=== PATIENT | female | born 1940 | race Caucasian/White ===

== ENCOUNTER 2021-01-28 15:18 | Inpatient (IN) | payer MEDICARE ==
[~2021-01-28] VITALS: Ht 162.6 cm; Wt 38.6 kg
[2021-01-28] MEDS ORDERED: ONDANSETRON 4 MG/2 ML VIAL IV ONE (15:45)
[2021-01-28] MEDS ORDERED: IV NORMAL SALINE 500 ML IV ONE ×2 (15:45→20:15)
[2021-01-28] MEDS ORDERED: ONDANSETRON 4 MG/2 ML VIAL ONE (15:50)
--- NOTE | 2021-01-28 16:10 | NUR ---
PT IS IN ROOM #2A. DR BORJA EVALUATED THE PT.
[2021-01-28 16:11] LABS: HEMATOCRIT 44.4 % (31.2-41.9); MEAN CORPUSCULAR HEMOGLOBIN 31.9 uug (24.7-32.8); MEAN CORPUSCULAR VOLUME 94.7 fL (75.5-95.3); PLATELET COUNT (AUTO) 396 K/uL (179-408)
[2021-01-28 16:13] LABS: CREATININE 0.8 mg/dL (0.6-1.3); POTASSIUM 3.4 mmol/L (3.5-5.1)
[2021-01-28 16:19] LABS: ETHANOL < 3 MG/DL (0-0)
[2021-01-28 16:26] LABS: BILIRUBIN,TOTAL 0.8 mg/dL (0.2-1.0); TOTAL PROTEIN, SERUM 7.4 g/dL (6.4-8.2)
[2021-01-28] MEDS ORDERED: LORAZEPAM 2 MG/1 ML VIAL IV ONE (16:30)
[2021-01-28] MEDS ORDERED: HYDROMORPHONE 1 MG/1 ML DISP.SYRIN ONE (16:35)
[2021-01-28] MEDS ORDERED: SERT25TA PO (16:36)
[2021-01-28] MEDS ORDERED: LOSA50TA39 PO (16:36)
[2021-01-28] MEDS ORDERED: IBUP-1953 PO (16:36)
[2021-01-28 16:37] LABS: LIPASE 48 U/L (73-393); MAGNESIUM 2.5 mg/dL (1.8-2.4)
[2021-01-28] MEDS ORDERED: LORAZEPAM 2 MG/1 ML VIAL ONE (16:38)
[2021-01-28 16:52] LABS: THYROID STIMULATING HORMONE 0.519 mIU/mL (0.358-3.740)
[2021-01-28] MEDS ORDERED: IV NORMAL SALINE 1000 ML BAG IV ONE (17:15)
[2021-01-28] MEDS ORDERED: SWABABLE VALVE TRANSFER SET EA MC ONE (17:32)
[2021-01-28] MEDS ORDERED: IV NORMAL SALINE 250 ML IV ONE (17:32)
[2021-01-28] MEDS ORDERED: IOHEXOL 350 100 ML INFUS..BTL ONE (17:32)
[2021-01-28] MEDS ORDERED: AZITHROMYCIN IV 500 MG in IV DEXTROSE 5% 250 ML IV ONE (19:15)
[2021-01-28] MEDS ORDERED: CEFTRIAXONE 1 G in IV DEXTROSE 5% 50 ML IV ONE (19:15)
[2021-01-28] MEDS ORDERED: AZITHROMYCIN 500MG/ D5W 250ML IVPB **ER PYXIS ONLY IV ONE (19:34)
[2021-01-28] MEDS ORDERED: CEFTRIAXONE /D5W 50ML IVPB **ER PYXIS IV ONE (19:34)
[2021-01-28] MEDS ORDERED: ONDANSETRON 4 MG/2 ML VIAL IV PRN (20:45)
[2021-01-28] MEDS ORDERED: AZITHROMYCIN IV 500 MG in IV DEXTROSE 5% 250 ML IV SCH (20:45)
[2021-01-28] MEDS ORDERED: ACETAMINOPHEN 325 MG TABLET PO PRN (20:45)
[2021-01-28] MEDS ORDERED: MAGNESIUM HYDROXIDE 30 ML LIQUID UDC PO PRN (20:45)
[2021-01-28] MEDS ORDERED: CEFTRIAXONE 1 G in IV DEXTROSE 5% 50 ML IV SCH (20:45)
[2021-01-28] MEDS ORDERED: Z GUARD REMEDY PASTE 57 GM TUBE TOP PRN (20:45)
--- NOTE | 2021-01-28 20:46 | NUR ---
DR ZENDEJAS TALKED TO DR MCINTYRE ABOUT PT's ADMISSION . PT IS GOING TO BE ADMITTED TO TLEMETRY FLOOR. NO BEDS AVAILABLE ON TELEMETRY FLOOR ACCORDING TO NURSING CHIEF OF SAFETY AND PROTECTION.
[2021-01-28] MEDS: ENOXAPARIN SODIUM 40 MG/0.4 ML DISP.SYRIN SQ SCH (20:56)
--- NOTE | 2021-01-28 23:39 | NUR ---
REPORT GIVEN TO ACCOUNT PROCESSOR EDVIN VILLAGOMEZ.
[2021-01-29 06:13] LABS: HEMATOCRIT 42.8 % (31.2-41.9); MEAN CORPUSCULAR HEMOGLOBIN 31.9 uug (24.7-32.8); MEAN CORPUSCULAR VOLUME 95.7 fL (75.5-95.3); PLATELET COUNT (AUTO) 343 K/uL (179-408)
[2021-01-29 06:39] LABS: CREATININE 0.7 mg/dL (0.6-1.3); MAGNESIUM 2.4 mg/dL (1.8-2.4); PHOSPHOROUS 3.7 mg/dL (2.5-4.9); POTASSIUM 4.3 mmol/L (3.5-5.1)
[2021-01-29] MEDS: PANTOPRAZOLE SODIUM 40 MG TABLET.DR PO SCH (07:01)
[2021-01-29] MEDS ORDERED: PANTOPRAZOLE SODIUM 40 MG TABLET.DR PO ONE (07:07)
[2021-01-29] MEDS ORDERED: CEFTRIAXONE /D5W 50ML IVPB **ER PYXIS IV ONE (08:14)
[2021-01-29] MEDS ORDERED: AZITHROMYCIN 500MG/ D5W 250ML IVPB **ER PYXIS ONLY IV ONE (08:55)
[2021-01-29] MEDS: AZITHROMYCIN IV 500 MG in IV DEXTROSE 5% 250 ML IV SCH (08:56)
[2021-01-29] MEDS: ENOXAPARIN SODIUM 40 MG/0.4 ML DISP.SYRIN SQ SCH (09:10)
[2021-01-29] MEDS ORDERED: ENOXAPARIN SODIUM 40 MG/0.4 ML DISP.SYRIN SQ ONE (09:15)
[2021-01-29 10:15] LABS: THYROID STIMULATING HORMONE 1.009 mIU/mL (0.358-3.740)
--- NOTE | 2021-01-29 11:02 | NUR ---
Spoke to Dr Arnold for Inpatient care.
[2021-01-29] MEDS: IV 1/2NS 1000 ML 1,000 ML IV PRN ×2 (11:55→20:05)
--- NOTE | 2021-01-29 15:37 | NUR ---
Pt resting in bed, watching TV, NAD noted.
[2021-01-29] MEDS: LORAZEPAM 2 MG/1 ML VIAL IV PRN (16:03)
--- NOTE | 2021-01-29 16:03 | NUR ---
Pt c/o anxiety, Ativan per PRN order slow IVP given.
[2021-01-29] MEDS ORDERED: LORAZEPAM 2 MG/1 ML VIAL ONE (16:05)
--- NOTE | 2021-01-29 16:46 | NUR ---
Patient is resting comfortably in bed with eyes closed, NAD noted. Continue w/ close monitoring.
[2021-01-29] MEDS: CEFTRIAXONE 1 G in IV DEXTROSE 5% 50 ML IV SCH (20:06)
[2021-01-29 20:49] VITALS: BP 105/67
[2021-01-30 04:00] VITALS: BP 122/64
--- NOTE | 2021-01-30 05:06 | NUR ---
Pt slept throughout the night. Titrated to 1.5 L. Denies SOB or chest pain. IV site intact and running ordered fluids. Safery and comfort provided. No other issues or concerns at this time, will endorse to day shift.
[2021-01-30] MEDS: PANTOPRAZOLE SODIUM 40 MG TABLET.DR PO SCH (06:17)
[2021-01-30 06:28] LABS: HEMATOCRIT 38.2 % (31.2-41.9); MEAN CORPUSCULAR HEMOGLOBIN 31.3 uug (24.7-32.8); MEAN CORPUSCULAR VOLUME 95.2 fL (75.5-95.3); PLATELET COUNT (AUTO) 309 K/uL (179-408)
[2021-01-30 07:03] LABS: CARBON DIOXIDE 27 mmol/L (21-32); CHLORIDE 104 mmol/L (98-107); CREATININE 0.5 mg/dL (0.6-1.3); GLUCOSE 80 mg/dL (74-106); PHOSPHOROUS 2.8 mg/dL (2.5-4.9); POTASSIUM 3.7 mmol/L (3.5-5.1); UREA NITROGEN, BLOOD 14 mg/dL (7-18)
--- NOTE | 2021-01-30 08:00 | NUR ---
PT IN BED SLEEPING, AROUSABLE TO NAME. PT HAS STAGE II PRESSURE ULCER ON COCCYX. PT ON TEL MONITOR NSR, NO SIGNS OF DISTRESS, NO REPORTS OF PAIN AT THIS TIME. PT ON 1.5L O2 VIA NC SATURATING AT 95%. PT PENDING SWALLOW EVAL FOR THIS AFTERNOON. IV ACCESS ON THE LEFT FA 20G INFUSING 1/2 NS AT 75CC. WILL CONTINUE WITH PLAN OF CARE.
[2021-01-30] MEDS: ENOXAPARIN SODIUM 40 MG/0.4 ML DISP.SYRIN SQ SCH (09:44)
[2021-01-30] MEDS: IV 1/2NS 1000 ML 1,000 ML IV PRN (09:46)
[2021-01-30] MEDS: AZITHROMYCIN IV 500 MG in IV DEXTROSE 5% 250 ML IV SCH (10:05)
--- NOTE | 2021-01-30 11:30 | NUR ---
PT WAS SOB ON 2L SATURATING AT 86%, O2 INCREASED TO 4.0L AND PT WAS SATURATING AT 89/90%. PT WAS STILL HAVING TROUBLE TALKING WITHOUT BEING SHORT OF BREATH. HOSPITALIST NOTIFIED, ORDERS GIVEN AND FULFILLED. Addendum: 01/30/21 at 1201 by ASHLEY KATZ RN WRONG PT PLEASE DISREGARD
[2021-01-30 12:00] VITALS: BP 114/47
--- NOTE | 2021-01-30 12:00 | NUR ---
CONSENT RECEIVED TO PROCEED WITH DIALYSIS CATHETER PLACEMENT AT BEDSIDE Addendum: 01/30/21 at 1202 by ASHLEY KATZ RN WRONG PT PLEASE DISREGARD
[2021-01-30 15:56] VITALS: BP 132/64
--- NOTE | 2021-01-30 19:30 | NUR ---
RECEIVED PT AWAKE,ALERT AND ORIENTEDX1. PT IN NO ACUTE RESPIRATORY DISTRESS. PT CONFUSED, SCREAMING AND RESTLESS. IV INTACT. PT ON 1.5L NASAL CANNULA. SAFETY AND COMFORT PROVIDED. WILL CONTINUE TO MONITOR.
[2021-01-30] MEDS: CEFTRIAXONE 1 G in IV DEXTROSE 5% 50 ML IV SCH (19:52)
[2021-01-30] MEDS: LORAZEPAM 2 MG/1 ML VIAL IV PRN (19:52)
[2021-01-30 20:00] VITALS: BP 159/76
[2021-01-31 00:30] VITALS: BP 148/85
[2021-01-31] MEDS: LORAZEPAM 2 MG/1 ML VIAL IV PRN (02:35)
[2021-01-31] MEDS: IV 1/2NS 1000 ML 1,000 ML IV PRN ×2 (02:42→20:11)
[2021-01-31 04:00] VITALS: BP 119/57
--- NOTE | 2021-01-31 05:09 | NUR ---
PT SLEPT INTERMITTENTLY. PT IN NO ACUTE DISTRESS. IV INTACT. PT GIVEN ATIVAN PRN AT 1952H AND 0235H FOR RESTLESSNESS AND AGITATION. PRESCRIBED MEDICATION GIVEN AND PT TOLERATED IT WELL. SAFETY AND COMFORT PROVIDED. WILL ENDORSE TO INCOMING DORINAE FOR CONTINUITY OF CARE.
[2021-01-31] MEDS: PANTOPRAZOLE SODIUM 40 MG TABLET.DR PO SCH (06:03)
[2021-01-31 06:36] LABS: HEMATOCRIT 41.2 % (31.2-41.9); MEAN CORPUSCULAR HEMOGLOBIN 31.2 uug (24.7-32.8); MEAN CORPUSCULAR VOLUME 94.1 fL (75.5-95.3); PLATELET COUNT (AUTO) 404 K/uL (179-408)
[2021-01-31 06:47] LABS: CARBON DIOXIDE 28 mmol/L (21-32); CHLORIDE 104 mmol/L (98-107); CREATININE 0.5 mg/dL (0.6-1.3); GLUCOSE 96 mg/dL (74-106); MAGNESIUM 1.8 mg/dL (1.8-2.4); PHOSPHOROUS 2.4 mg/dL (2.5-4.9); POTASSIUM 3.4 mmol/L (3.5-5.1); UREA NITROGEN, BLOOD 4 mg/dL (7-18)
--- NOTE | 2021-01-31 08:00 | NUR ---
received change of shift report. pt a/ox2, pt has stage 2 wound on the coccyx, pt on tele monitor nsr. pt on 1.5L O2 via NC. IV access on the right FA 22g 1/2 NS at 75. bed low and locked call light within reach. HOB elevated, pt on aspiration precautions, will continue to monitor.
[2021-01-31] MEDS: ENOXAPARIN SODIUM 40 MG/0.4 ML DISP.SYRIN SQ SCH (09:00)
[2021-01-31] MEDS: AZITHROMYCIN IV 500 MG in IV DEXTROSE 5% 250 ML IV SCH (09:27)
[2021-01-31] MEDS ORDERED: POTASSIUM CHLORIDE 20 MEQ TAB.PRT.SR PO ONE (10:00)
--- NOTE | 2021-01-31 10:00 | NUR ---
PT LIVES AT HOME WITH 24/7 CAREGIVERS. PT HAS STAGE 2 DECUB ON THE SACRUM AND POSSIBLE ASPIRATION PNA. SS CONSULT ORDERED AND MADE AWARE.
[2021-01-31] MEDS ORDERED: PHENOL/SODIUM PHENOLATE SPRAY 177 ML BOTTLE MM PRN (11:15)
[2021-01-31 12:00] VITALS: BP 145/66
[2021-01-31] MEDS ORDERED: Medication Not On Formulary EA (Sertraline Hcl (Zoloft) 1 TAB) PO SCH (13:15)
[2021-01-31] MEDS: LOSARTAN POTASSIUM 50 MG TABLET PO SCH (14:18)
[2021-01-31] MEDS ORDERED: NEUTRA PHOS PACKET PO ONE (15:30)
[2021-01-31 16:00] VITALS: BP 143/78
[2021-01-31] MEDS ORDERED: IBUPROFEN 400 MG TABLET PO SCH (17:00)
[2021-01-31] MEDS: IBUPROFEN 600 MG TABLET PO SCH (18:27)
[2021-01-31] MEDS: THERAHONEY GEL 1.5 OZ TUBE TOP SCH (18:28)
--- NOTE | 2021-01-31 19:06 | NUR ---
procedure consent obtained from caregiver, Rafaela
--- NOTE | 2021-01-31 19:30 | NUR ---
Received pt in bed, asleep but easily arousable. No signs of acute distress noted. NSR on tele. On oxygen at 1.5L via NC. IVF infusing well. Safety measures initiated, call light within reach.
[2021-01-31 20:00] VITALS: BP 153/71
[2021-01-31] MEDS: CEFTRIAXONE 1 G in IV DEXTROSE 5% 50 ML IV SCH (20:11)
[2021-01-31 21:00] VITALS: BP 109/57
[2021-02-01] VITALS: BP 117/62
[2021-02-01 04:00] VITALS: BP 135/67
--- NOTE | 2021-02-01 06:00 | NUR ---
No signs of acute distress noted through the night. Tolerated due medications well. Oral care done q2h. Frequent repositioning done for comfort. IVF infusing well. Safety measures maintained at all times. All needs attended to and met.
[2021-02-01] MEDS: PANTOPRAZOLE SODIUM 40 MG TABLET.DR PO SCH (06:17)
[2021-02-01 07:09] LABS: HEMATOCRIT 39.7 % (31.2-41.9); MEAN CORPUSCULAR HEMOGLOBIN 32.3 uug (24.7-32.8); PLATELET COUNT (AUTO) 383 K/uL (179-408)
[2021-02-01 08:25] VITALS: BP 108/54
[2021-02-01 08:29] LABS: CREATININE 0.7 mg/dL (0.6-1.3); MAGNESIUM 1.9 mg/dL (1.8-2.4); PHOSPHOROUS 3.5 mg/dL (2.5-4.9); POTASSIUM 3.4 mmol/L (3.5-5.1)
[2021-02-01] MEDS ORDERED: AZITHROMYCIN 250 MG TABLET PO SCH (09:00)
[2021-02-01] MEDS ORDERED: POTASSIUM CHLORIDE 20 MEQ TAB.PRT.SR PO ONE (09:30)
[2021-02-01] MEDS: SERTRALINE HCL 50 MG TABLET PO SCH (09:39)
[2021-02-01] MEDS: THERAHONEY GEL 1.5 OZ TUBE TOP SCH (09:39)
[2021-02-01] MEDS: IBUPROFEN 600 MG TABLET PO SCH ×2 (09:40→13:38)
[2021-02-01] MEDS: LOSARTAN POTASSIUM 50 MG TABLET PO SCH (09:40)
[2021-02-01] MEDS: ENOXAPARIN SODIUM 40 MG/0.4 ML DISP.SYRIN SQ SCH (09:41)
[2021-02-01 11:18] VITALS: BP 152/72
[2021-02-01 15:50] VITALS: BP 160/77
[2021-02-01] MEDS: CEFTRIAXONE 1 G in IV DEXTROSE 5% 50 ML IV SCH (20:23)
[2021-02-01 20:27] VITALS: BP 127/67
--- NOTE | 2021-02-01 22:15 | NUR ---
Patient resting in bed comfortably.No s/s of distress noted.HOB elevated.IV on right FA patent and intact with IVF infusing well. Administered IV ATB as ordered . no a/r noted. Patient seen and examined by with new order noted and carried out. Continue safety measures and aspiration precaution. Call light with in reach. Will continue to monitor.
[2021-02-02 00:08] VITALS: BP_SYST 160; BP_SYST 178; BP_DIAS 75; BP_DIAS 80
[2021-02-02] MEDS: IV 1/2NS 1000 ML 1,000 ML IV PRN ×2 (00:49→16:10)
[2021-02-02 04:37] VITALS: BP 127/79
[2021-02-02 06:25] LABS: MEAN CORPUSCULAR HEMOGLOBIN 31.5 uug (24.7-32.8); MEAN CORPUSCULAR VOLUME 94.9 fL (75.5-95.3); PLATELET COUNT (AUTO) 419 K/uL (179-408)
[2021-02-02] MEDS: PANTOPRAZOLE SODIUM 40 MG TABLET.DR PO SCH (06:25)
[2021-02-02 07:27] LABS: CREATININE 0.6 mg/dL (0.6-1.3); MAGNESIUM 1.7 mg/dL (1.8-2.4); PHOSPHOROUS 3.8 mg/dL (2.5-4.9); POTASSIUM 3.2 mmol/L (3.5-5.1)
--- NOTE | 2021-02-02 07:30 | NUR ---
Received resting in bed awake and alert. No respiratory distress noted. On 1 lpm nc spo2 95%. Complained of shoulder and back soreness. Patient is repositioned comfortably. Iv intact and hydration ongoing. Kept comfortable. Call light within reach. Will continue to monitor.
[2021-02-02] MEDS: LOSARTAN POTASSIUM 50 MG TABLET PO SCH (08:38)
[2021-02-02] MEDS: ENOXAPARIN SODIUM 40 MG/0.4 ML DISP.SYRIN SQ SCH (08:39)
[2021-02-02] MEDS: SERTRALINE HCL 50 MG TABLET PO SCH (08:39)
[2021-02-02] MEDS: IBUPROFEN 600 MG TABLET PO SCH ×3 (09:00→17:00)
[2021-02-02 09:09] VITALS: BP 199/82
[2021-02-02] MEDS: THERAHONEY GEL 1.5 OZ TUBE TOP SCH (09:13)
[2021-02-02] MEDS ORDERED: POTASSIUM CHLORIDE 20 MEQ TAB.PRT.SR PO ONE (09:15)
[2021-02-02] MEDS: MAGNESIUM SULFATE/D5W 100 ML IV SCH ×2 (09:31→10:36)
[2021-02-02] MEDS: LORAZEPAM 2 MG/1 ML VIAL IV PRN (11:19)
--- NOTE | 2021-02-02 11:30 | NUR ---
Patient is agitated and yelling. Seen by Dr. Charles. Given Ativan per order. No distress noted. Will continue to monitor.
[2021-02-02 12:00] VITALS: BP 152/74
--- NOTE | 2021-02-02 12:59 | NUR ---
Patient is calm appears comfortable. No distress noted. Will continue to monitor.
[2021-02-02 15:50] VITALS: BP 150/64
--- NOTE | 2021-02-02 18:58 | NUR ---
Patient in bed resting. Iv intact hydration ongoing and tolerated. Current diet tolerated but patient still with poor intake. No nausea or vomiting noted. Patient denies pain. Changed and repositioned prn. Kept comfortable. Call light within reach. Safety and fall measures maintained.
--- NOTE | 2021-02-02 19:30 | NUR ---
Received pt in bed, awake and verbally responsive. no signs of distress. On oxygen at 1LPM saturating 95%. Denies pain or discomfort. IVF infusing well. Safety measures initiated, call light within reach.
[2021-02-02] MEDS: CEFTRIAXONE 1 G in IV DEXTROSE 5% 50 ML IV SCH (19:56)
[2021-02-02 20:09] VITALS: BP 134/89
[2021-02-03] VITALS: BP 154/70
[2021-02-03] MEDS: HALOPERIDOL LACTATE 5 MG/1 ML VIAL IM PRN (03:43)
[2021-02-03 04:09] VITALS: BP 183/91
[2021-02-03] MEDS: hydrALAZINE HCL 50 MG TABLET PO PRN (05:05)
[2021-02-03] MEDS: PANTOPRAZOLE SODIUM 40 MG TABLET.DR PO SCH (06:28)
[2021-02-03 06:39] LABS: HEMATOCRIT 41.2 % (31.2-41.9); MEAN CORPUSCULAR HEMOGLOBIN 32.1 uug (24.7-32.8); MEAN CORPUSCULAR VOLUME 94.8 fL (75.5-95.3); PLATELET COUNT (AUTO) 422 K/uL (179-408)
--- NOTE | 2021-02-03 06:45 | NUR ---
No signs of respiratory distress, SR on tele. Tolerated IV abx, refused protonix medication. Oral care done as needed, repositioning done for comfort. Safety measures maintained at all times, all needs attended to and met.
[2021-02-03 06:51] LABS: CREATININE 0.6 mg/dL (0.6-1.3); MAGNESIUM 2.1 mg/dL (1.8-2.4); PHOSPHOROUS 3.6 mg/dL (2.5-4.9); POTASSIUM 3.4 mmol/L (3.5-5.1)
[2021-02-03] MEDS: IV 1/2NS 1000 ML 1,000 ML IV PRN ×2 (07:48→22:46)
[2021-02-03] MEDS: IBUPROFEN 600 MG TABLET PO SCH ×3 (08:12→16:11)
[2021-02-03] MEDS: THERAHONEY GEL 1.5 OZ TUBE TOP SCH (08:13)
[2021-02-03] MEDS: LOSARTAN POTASSIUM 50 MG TABLET PO SCH (08:13)
[2021-02-03] MEDS: SERTRALINE HCL 50 MG TABLET PO SCH (08:13)
[2021-02-03] MEDS: ENOXAPARIN SODIUM 40 MG/0.4 ML DISP.SYRIN SQ SCH (08:21)
[2021-02-03] MEDS: LORAZEPAM 2 MG/1 ML VIAL IV PRN (09:06)
[2021-02-03] MEDS ORDERED: POTASSIUM CHLORIDE 20 MEQ TAB.PRT.SR PO SCH (09:45)
[2021-02-03 11:52] VITALS: BP 134/64
[2021-02-03 15:53] VITALS: BP 99/46
[2021-02-03 20:06] VITALS: BP 121/55
[2021-02-03] MEDS: CEFTRIAXONE 1 G in IV DEXTROSE 5% 50 ML IV SCH (20:37)
--- NOTE | 2021-02-03 23:00 | NUR ---
Patient resting in bed comfortably.No s/s of distress noted. VSS on RA saturating at 94-95%, N SOB noted. HOB elevated. IV on right FA patent and intact with IVF infusing well. Administered IV ATB as ordered. Patient is calm and cooperative, able to make needs known. Turned Q2H. kept clean and comfortable. Pt is NPO. Continue safety measures and aspiration precaution. Call light with in reach. Will continue to monitor.
[2021-02-04 04:03] VITALS: BP 155/76
[2021-02-04 06:08] LABS: HEMATOCRIT 41.4 % (31.2-41.9); MEAN CORPUSCULAR HEMOGLOBIN 31.6 uug (24.7-32.8); MEAN CORPUSCULAR VOLUME 95.2 fL (75.5-95.3); PLATELET COUNT (AUTO) 403 K/uL (179-408)
[2021-02-04] MEDS: PANTOPRAZOLE SODIUM 40 MG TABLET.DR PO SCH (06:28)
[2021-02-04 06:29] LABS: CREATININE 0.7 mg/dL (0.6-1.3); PHOSPHOROUS 3.5 mg/dL (2.5-4.9); POTASSIUM 3.8 mmol/L (3.5-5.1)
[2021-02-04] MEDS: SERTRALINE HCL 50 MG TABLET PO SCH (08:08)
[2021-02-04] MEDS: LOSARTAN POTASSIUM 50 MG TABLET PO SCH (08:08)
[2021-02-04] MEDS: IBUPROFEN 600 MG TABLET PO SCH ×3 (08:08→16:10)
[2021-02-04] MEDS: ENOXAPARIN SODIUM 40 MG/0.4 ML DISP.SYRIN SQ SCH (08:10)
[2021-02-04] MEDS: THERAHONEY GEL 1.5 OZ TUBE TOP SCH (08:14)
[2021-02-04 10:42] VITALS: BP 153/80
[2021-02-04] MEDS: IV 1/2NS 1000 ML 1,000 ML IV PRN (11:44)
[2021-02-04] MEDS ORDERED: LIDOCAINE 1%-EPI 1:100,000 20 ML VIAL IJ ONE (12:30)
[2021-02-04] MEDS ORDERED: SILVER NITRATE APPLICATOR STICK EACH TP ONE (12:30)
[2021-02-04 15:25] VITALS: BP 136/77
[2021-02-04] MEDS ORDERED: BARIUM SULFATE 240 ML ORAL.SUSP PO ONE (15:48)
[2021-02-04] MEDS ORDERED: BARIUM SULFATE 148 GM SUSP.RECON PO ONE (15:48)
[2021-02-04] MEDS: LORAZEPAM 2 MG/1 ML VIAL IV PRN (15:54)
[2021-02-04] MEDS: CEFTRIAXONE 1 G in IV DEXTROSE 5% 50 ML IV SCH (20:18)
[2021-02-04 20:20] VITALS: BP 137/87
[2021-02-04] MEDS: HALOPERIDOL LACTATE 5 MG/1 ML VIAL IM PRN (23:25)
[2021-02-05] MEDS: IV 1/2NS 1000 ML 1,000 ML IV PRN ×2 (01:24→15:30)
[2021-02-05 04:10] VITALS: BP 140/66
--- NOTE | 2021-02-05 04:15 | NUR ---
Patient noted screaming.Easily gets agitated. Re assurance rendered.Patient continues to scream .HAldol given with good result. Turned Q2 hrs. Wound care provided. IV on right FA with IVF infusing well.Adm IV ATB as ordered .No a/r noted. VSS . Safety measures in place. Call light with in reach.
[2021-02-05] MEDS: PANTOPRAZOLE SODIUM 40 MG TABLET.DR PO SCH (06:30)
[2021-02-05 06:37] LABS: HEMATOCRIT 40.7 % (31.2-41.9); MEAN CORPUSCULAR HEMOGLOBIN 31.8 uug (24.7-32.8); MEAN CORPUSCULAR VOLUME 94.5 fL (75.5-95.3); PLATELET COUNT (AUTO) 402 K/uL (179-408)
[2021-02-05 07:01] LABS: BILIRUBIN,TOTAL 0.2 mg/dL (0.2-1.0); CREATININE 0.6 mg/dL (0.6-1.3); MAGNESIUM 1.9 mg/dL (1.8-2.4); PHOSPHOROUS 3.4 mg/dL (2.5-4.9); POTASSIUM 3.4 mmol/L (3.5-5.1); TOTAL PROTEIN, SERUM 6.3 g/dL (6.4-8.2)
[2021-02-05] MEDS: SERTRALINE HCL 50 MG TABLET PO SCH (08:07)
[2021-02-05] MEDS: IBUPROFEN 600 MG TABLET PO SCH ×3 (08:07→16:14)
[2021-02-05] MEDS: LOSARTAN POTASSIUM 50 MG TABLET PO SCH (08:07)
[2021-02-05] MEDS: ENOXAPARIN SODIUM 40 MG/0.4 ML DISP.SYRIN SQ SCH (08:24)
[2021-02-05] MEDS: THERAHONEY GEL 1.5 OZ TUBE TOP SCH (08:25)
[2021-02-05] MEDS: POTASSIUM CHLORIDE 50 ML IV SCH ×2 (10:16→10:57)
[2021-02-05 11:27] VITALS: BP 152/89
[2021-02-05] MEDS: LORAZEPAM 2 MG/1 ML VIAL IV PRN (12:19)
[2021-02-05 15:20] VITALS: BP 150/70
[2021-02-05] MEDS: CEFTRIAXONE 1 G in IV DEXTROSE 5% 50 ML IV SCH (19:39)
[2021-02-05 20:10] VITALS: BP 143/66
[2021-02-06] VITALS (7 sets, daily range): BP systolic 120–176; BP diastolic 70–82
[2021-02-06] MEDS: LORAZEPAM 2 MG/1 ML VIAL IV PRN ×2 (00:58→22:28)
[2021-02-06] MEDS: IV 1/2NS 1000 ML 1,000 ML IV PRN ×2 (05:11→17:02)
[2021-02-06 06:02] LABS: MEAN CORPUSCULAR HEMOGLOBIN 31.9 uug (24.7-32.8); MEAN CORPUSCULAR VOLUME 94.7 fL (75.5-95.3); PLATELET COUNT (AUTO) 378 K/uL (179-408)
[2021-02-06] MEDS: PANTOPRAZOLE SODIUM 40 MG TABLET.DR PO SCH (06:03)
[2021-02-06 06:15] LABS: CREATININE 0.8 mg/dL (0.6-1.3); MAGNESIUM 1.9 mg/dL (1.8-2.4); PHOSPHOROUS 3.7 mg/dL (2.5-4.9); POTASSIUM 3.7 mmol/L (3.5-5.1)
[2021-02-06] MEDS: ENOXAPARIN SODIUM 40 MG/0.4 ML DISP.SYRIN SQ SCH (09:00)
--- NOTE | 2021-02-06 09:00 | NUR ---
NSG: Received patient lying in bed. No signs of respiratory distress, SR on tele. npo for gt placement. Oral care done as needed, repositioning done for comfort. Safety measures maintained at all times, all needs attended to and met.
[2021-02-06] MEDS: SERTRALINE HCL 50 MG TABLET PO SCH (09:11)
[2021-02-06] MEDS: LOSARTAN POTASSIUM 50 MG TABLET PO SCH (09:14)
[2021-02-06] MEDS: IBUPROFEN 600 MG TABLET PO SCH ×3 (09:14→17:00)
[2021-02-06] MEDS: THERAHONEY GEL 1.5 OZ TUBE TOP SCH (09:15)
--- NOTE | 2021-02-06 12:12 | NUR ---
NSG: SAM SAWYER MADE AWARE THAT SURGERY CALLED GT PLACEMENT GOING TO BE PLACE TOMORROW 04:15 AM. PATIENT STILL NPO . IVF RUNNING WELL.
--- NOTE | 2021-02-06 15:21 | NUR ---
NSG: No signs of respiratory distress, child care @ bed side. Oral care done as needed, repositioning done for comfort. Safety measures maintained at all times, all needs attended to and met.
[2021-02-06] MEDS: hydrALAZINE HCL 50 MG TABLET PO PRN (16:05)
[2021-02-07 04:15] VITALS: BP 145/67
--- NOTE | 2021-02-07 04:20 | NUR ---
pt went to or via bed for the procedure
--- NOTE | 2021-02-07 06:03 | NUR ---
pt received from recovery room via bed in stable condition g tube placed by dr montoya
[2021-02-07] MEDS ORDERED: MAGNESIUM HYDROXIDE 30 ML LIQUID UDC GT PRN (07:08)
[2021-02-07] MEDS ORDERED: ACETAMINOPHEN 650 MG/20.3 ML LIQUID UDC GT PRN (07:15)
--- NOTE | 2021-02-07 08:00 | NUR ---
PT IN BED RESTING, PT ON 2L O2 FROM SURGERY PROCEDURE THIS MORNING. PEG WAS PLACED, PT HAS ABD BINDER, NO REPORTS OF PAIN AT THIS TIME. PT NPO EXCEPT MEDS, TO RESUME TUBE FEEDING TOMORROW 8/14 AM. BED LOW AND LOCKED, ON AIR MATTRESS, WILL CONTINUE WITH PLAN OF CARE.
--- NOTE | 2021-02-07 08:00 | NUR ---
PT IN BED, AGITATED, ATTEMPTING TO GET OUT OF BED. PT ABLE TO REORIENT. A/OX1 CONFUSED, ALERT TO SELF. PT ON ROOM AIR, NO SIGNS OF DISTRESS, NO REPORTS OF PAIN AT THIS TIME, CALL LIGHT WITHIN REACH, WILL CONTINUE WITH PLAN OF CARE. Addendum: 02/07/21 at 1220 by ASHLEY KATZ RN WRONG PT, DISREGARD
[2021-02-07] MEDS ORDERED: IBUPROFEN 600 MG TABLET GT PRN (09:00)
[2021-02-07] MEDS: IV 1/2NS 1000 ML 1,000 ML IV PRN ×2 (09:04→22:33)
[2021-02-07] MEDS: PANTOPRAZOLE ORAL SUSPENSION 40 MG SUSPDR.PKT GT SCH (09:05)
[2021-02-07] MEDS: LOSARTAN POTASSIUM 50 MG TABLET GT SCH (09:11)
[2021-02-07] MEDS: SERTRALINE HCL 50 MG TABLET GT SCH (09:12)
[2021-02-07] MEDS: THERAHONEY GEL 1.5 OZ TUBE TOP SCH (09:13)
[2021-02-07 09:14] VITALS: BP 144/68
[2021-02-07] MEDS: HALOPERIDOL LACTATE 5 MG/1 ML VIAL IM PRN (09:34)
[2021-02-07] MEDS: ENOXAPARIN SODIUM 40 MG/0.4 ML DISP.SYRIN SQ SCH (09:35)
[2021-02-07] MEDS ORDERED: JEVITY 1.2 1000 ML LIQUID GT PRN (10:00)
[2021-02-07 11:13] VITALS: BP 126/65
[2021-02-07 12:41] LABS: HEMATOCRIT 39.6 % (31.2-41.9); MEAN CORPUSCULAR HEMOGLOBIN 31.8 uug (24.7-32.8); PLATELET COUNT (AUTO) 376 K/uL (179-408)
[2021-02-07 12:50] LABS: CREATININE 0.8 mg/dL (0.6-1.3); MAGNESIUM 1.8 mg/dL (1.8-2.4); PHOSPHOROUS 3.5 mg/dL (2.5-4.9); POTASSIUM 3.8 mmol/L (3.5-5.1)
[2021-02-07 15:12] VITALS: BP 144/73
[2021-02-07 20:00] VITALS: BP 142/84
[2021-02-07] MEDS: LORAZEPAM 2 MG/1 ML VIAL IV PRN (22:26)
[2021-02-08 04:25] VITALS: BP 155/73
--- NOTE | 2021-02-08 05:47 | NUR ---
Pt slept throughout the night. Denies pain or SOB. Able to make needs known. IV site intact. Safety and comfort provided. No other issues or concerns at this time, will endorse to day shift.
[2021-02-08] MEDS: PANTOPRAZOLE ORAL SUSPENSION 40 MG SUSPDR.PKT GT SCH (06:18)
[2021-02-08] MEDS: HALOPERIDOL LACTATE 5 MG/1 ML VIAL IM PRN (08:17)
[2021-02-08] MEDS: LOSARTAN POTASSIUM 50 MG TABLET GT SCH (08:27)
[2021-02-08] MEDS: SERTRALINE HCL 50 MG TABLET GT SCH (08:27)
[2021-02-08] MEDS: ENOXAPARIN SODIUM 40 MG/0.4 ML DISP.SYRIN SQ SCH (08:28)
[2021-02-08] MEDS: THERAHONEY GEL 1.5 OZ TUBE TOP SCH (08:32)
[2021-02-08] MEDS: LORAZEPAM 2 MG/1 ML VIAL IV PRN (09:40)
[2021-02-08] MEDS ORDERED: MAGN400O6 GT (13:15)
[2021-02-08] MEDS ORDERED: ACET650S26 GT (13:15)
[2021-02-08] MEDS ORDERED: SERT50TA12 GT (13:15)
[2021-02-08] MEDS ORDERED: PANT40SU2 GT (13:15)
[2021-02-08] MEDS ORDERED: LOSA50TA3 GT (13:15)
[2021-02-08] MEDS ORDERED: LACT-209 GT (13:15)
[2021-02-08] MEDS ORDERED: CEFAZOLIN 1 G VIAL MC ONE (13:35)
[2021-02-08] MEDS ORDERED: PROPOFOL 200 MG/20 ML BOTTLE IV ONE (13:35)
[2021-02-08 14:21] VITALS: BP 142/84
== END 2021-02-08 15:15 | DRG 166 ==
LOC: ER 15:23 → TRANSITION 23:55 → TELE3 01-29 17:26 → MEDSURG3 02-03 09:53
PROVIDERS: ADMIT Student in an Organized Health Care Education/Training Program; ATTEND Hospitalist
PROC: 0JB70ZZ Excision of Back Subcutaneous Tissue and Fascia, Open Approach (ICD-10-PCS; principal; 2021-02-04)
PROC: 0DH63UZ Insertion of Feeding Device into Stomach, Percutaneous Approach (ICD-10-PCS; 2021-02-07)
DX: J69.0 Pneumonitis due to inhalation of food and vomit (principal); L89.153 Pressure ulcer of sacral region, stage 3; G92 Toxic encephalopathy; E43 Unspecified severe protein-calorie malnutrition; J96.01 Acute respiratory failure with hypoxia; Z68.1 Body mass index [BMI] 19.9 or less, adult; J98.11 Atelectasis; R64 Cachexia; E86.0 Dehydration; E87.6 Hypokalemia; E78.5 Hyperlipidemia, unspecified; J84.10 Pulmonary fibrosis, unspecified; I10 Essential (primary) hypertension; K59.00 Constipation, unspecified; Z20.822 Contact with and (suspected) exposure to COVID-19; F10.10 Alcohol abuse, uncomplicated; M19.012 Primary osteoarthritis, left shoulder; M19.011 Primary osteoarthritis, right shoulder; R27.0 Ataxia, unspecified; H81.10 Benign paroxysmal vertigo, unspecified ear; R53.1 Weakness; F39 Unspecified mood [affective] disorder; L89.320 Pressure ulcer of left buttock, unstageable; L89.310 Pressure ulcer of right buttock, unstageable; K29.70 Gastritis, unspecified, without bleeding; R13.10 Dysphagia, unspecified; E88.09 Other disorders of plasma-protein metabolism, not elsewhere classified; Z87.891 Personal history of nicotine dependence; Z90.710 Acquired absence of both cervix and uterus; Y90.0 Blood alcohol level of less than 20 mg/100 ml
CPT/HCPCS: 36415; 51702; 70030-TC; 71045; 71275; 74230; 83605; 83690; 83735; 84100; 84443; 85025; 85610; 85730; 87040; 93005; 97161; A4217; A4663; A6209; G0378; G0480; J0456; J0690; J0696; J1170; J1630; J1650; J2060; J2405; J3475; J3480; J3490; J7030; J7050; J7060; Q0144; Q9967